=== PATIENT | female | born 1970 | race Caucasian/White ===

== ENCOUNTER → 2016-06-21 | Outpatient (CLI) | payer BC ==
[~2016-06-21] MED LIST: ACHD5005 PO; AMLO10TA2 PO; AMLO10TA82 PO; AMPH20CA5 PO; IBP800T PO; LISI1TAB10 PO; LISI2.5T PO; LSNP20T PO; NITR-65 PO; ONDAN4ODT PO; TRAM50TA2 PO
[2016-06-21 19:58] LABS: BASOPHILS % (AUTO) 0 % (0-10); EOSINOPHILS # (AUTO) 0.1 10^3/uL (0.0-0.3); EOSINOPHILS % (AUTO) 3 % (0-10); LYMPHOCYTES # (AUTO) 1.8 X 10^3 (1.0-4.0); LYMPHOCYTES % (AUTO) 38 % (12-44); MEAN CORPUSCULAR HEMOGLOBIN 30 PG (25-34); MEAN CORPUSCULAR HGB CONC 35 G/DL (32-36); MEAN CORPUSCULAR VOLUME 86 FL (80-99); MEAN PLATELET VOLUME 11.4 FL (7.4-10.4); MONOCYTES # (AUTO) 0.6 X 10^3 (0.0-1.0); MONOCYTES % (AUTO) 13 % (0-12); NEUTROPHILS # (AUTO) 2.1 X 10^3 (1.8-7.8); NEUTROPHILS % (AUTO) 46 % (42-75); PLATELET COUNT 188 10^3/uL (130-400); RED BLOOD COUNT 4.52 10^6/uL (4.35-5.85); RED CELL DISTRIBUTION WIDTH 12.6 % (10.0-14.5); WHITE BLOOD COUNT 4.6 10^3/uL (4.3-11.0)
[2016-06-21 20:23] LABS: ALANINE AMINOTRANSFERASE 40 U/L (0-55); ALBUMIN 4.1 G/DL (3.2-4.5); ANION GAP 11 MMOL/L (5-14); ASPARTATE AMINO TRANSFERASE 32 U/L (5-34); BILIRUBIN,TOTAL 0.3 MG/DL (0.1-1.0); BLOOD UREA NITROGEN 12 MG/DL (7-18); BUN/CREATININE RATIO 15; CARBON DIOXIDE 27 MMOL/L (21-32); CHLORIDE 102 MMOL/L (98-107); GFR ESTIMATED > 60; GLUCOSE 67 MG/DL (70-105); POTASSIUM 3.2 MMOL/L (3.6-5.0); SODIUM 140 MMOL/L (135-145); TOTAL PROTEIN 7.2 G/DL (6.4-8.2)
== END ==
LOC: LAB 19:40
PROVIDERS: ATTEND Nurse Practitioner Family
DX: M54.6 Pain in thoracic spine (principal); R10.84 Generalized abdominal pain
CPT/HCPCS: 36415; 80053; 85025

== ENCOUNTER 2021-10-09 13:23 | Observation (INO) | payer SELFPAY ==
[~2021-10-09] VITALS: Ht 160 cm; Wt 57.3 kg
[~2021-10-09 13:23] MED LIST changes: +AMLO-251 PO; -AMLO10TA2 PO; -LISI1TAB10 PO; +LISI1TAB48 PO; -LISI2.5T PO; +LISI2.5T13 PO; +TRM50T PO
--- NOTE | 2021-10-09 14:13 | ED Chest Pain ---
General Chief Complaint: Cardiac/General Problems Stated Complaint: CP,TANNER Source: patient Exam Limitations: no limitations History of Present Illness Date Seen by Provider: Oct 09, 2021 Time Seen by Provider: 13:48 Initial Comments Patient to the ER by EMS after being released from residential with chief complaint of high blood pressure, headache and chest pain substernal nonradiating. She says she was just laying down about 1030 at home when the chest pain started. It is worse with exertion. She was given 2 tablets of 81 mg aspirin by EMS and nitroglycerin paste which took her pain down from an 8 out of 10 to a 0 out of 10. Last use of IV methamphetamines was 2 weeks ago. She is not having shortness of air, back pain, vomiting but she has had nausea. No fevers chills cough leg swelling. No history of blood clots. No history of coronary disease but she does have significant hypertension for which she supposed to be on lisinopril, Norvasc and because she was incarcerated and ran out of her meds she has been out for at least 5 days. She doctors with [facility]. No significant early onset familial coronary disease. Last menstrual period is been a few months but the patient is perimenopausal states that she has not been regular for the past 6 months to a year. She is not on control. Smokes about half a pack per day. Allergies and Home Medications Allergies Coded Allergies: Penicillins (Verified Allergy, Unknown, 11/21/06) Patient Home Medication List Home Medication List Reviewed: Yes Amlodipine Besylate (Amlodipine Besylate) 10 Mg Tablet, 10 MG PO DAILY, (Reported) Entered as Reported by: ERIC POP on 03/23/16 1650 Dextroamphetamine/Amphetamine (Adderall Xr 20 mg Capsule) 20 Mg Cap.er.24h, 20 MG PO DAILY, (Reported) Entered as Reported by: LITA BORRERO on 03/23/16 1327 Lisinopril/Hydrochlorothiazide (Lisinopril-Hctz 20-25 mg Tab) 1 Each Tablet, 1 TAB PO DAILY, (Reported) Entered as Reported by: ERIC POP on 03/23/16 1650 Nitrofurantoin Monohyd/M-Cryst (Macrobid 100 mg Capsule) 100 Mg Capsule, 1 TAB PO BID Prescribed by: DAIANA GARCIA on 03/26/16 0939 Tramadol HCl (Tramadol HCl) 50 Mg Tablet, 100 MG PO TID, (Reported) Entered as Reported by: LITA BORRERO on 03/23/16 1327 Review of Systems Review of Systems Constitutional: No chills, No diaphoresis EENTM: No Blurred Vision, No Double Vision Respiratory: Denies Cough, Denies Shortness of Air; SOA With Exertion Cardiovascular: See HPI, Chest Pain; Denies Edema, Denies Irregular Heart Rate, Denies Lightheadedness Gastrointestinal: Denies Abdominal Pain, Denies Blood Streaked Stools, Denies Constipated, Denies Diarrhea, Denies Nausea Genitourinary: Denies Burning, Denies Discharge Musculoskeletal: No back pain, No joint pain Skin: No pruritus, No rash Psychiatric/Neurological: Denies Headache, Denies Numbness All Other Systems Reviewed Negative Unless Noted: Yes Past Qxihphl-Kwfwrv-Uzlfrh Hx Patient Social History Tobacco Use?: Yes Tobacco type used: Cigarettes Smoking Status: Current Everyday Smoker Substance use?: Yes Substance type: Methamphetamine Substance frequency: Once in a while Alcohol Use?: No Pt feels they are or have been: No Past Medical History Surgery/Hospitalization HX: HTN, APPY, Appendectomy, Section Hypertension Reproductive Disorders: No Back Injury, Chronic Back Pain Loss of Vision: Denies Hearing Impairment: Denies ADD/ADHD Physical Exam Vital Signs Vital Signs - First Documented 10/09/21 13:42 Temp 36.4 Pulse 80 Resp 20 B/P (MAP) 207/138 (161) Capillary Refill : Height, Weight, BMI Height: 5'3.00" Weight: 130lbs. 0.0oz. 58.213396us; 23.0 BMI Method:Stated General Appearance: No Apparent Distress, WD/WN HEENT: PERRL/EOMI, Pharynx Normal, Moist Mucous Membranes Neck: Full Range of Motion, Normal Inspection Respiratory: Chest Non Tender, Lungs Clear, Normal Breath Sounds, No Accessory Muscle Use, No Respiratory Distress Cardiovascular: Regular Rate, Rhythm, No Edema Gastrointestinal: Normal Bowel Sounds, Non Tender, Soft Extremity: Normal Capillary Refill, Normal Inspection, No Pedal Edema Neurologic/Psychiatric: Alert, Oriented x3, No Motor/Sensory Deficits Skin: Normal Color, Warm/Dry Progress/Results/Core Measures Results/Orders Lab Results Laboratory Tests Test 10/09/21 13:57 10/09/21 14:05 Range/Units SARS-CoV-2 RNA (RT-PCR) Not Detected Not Detecte White Blood Count 7.1 4.3-11.0 10^3/uL Red Blood Count 5.20 H 3.80-5.11 10^6/uL Hemoglobin 15.2 11.5-16.0 g/dL Hematocrit 46 35-52 % Mean Corpuscular Volume 88 80-99 fL Mean Corpuscular Hemoglobin 29 25-34 pg Mean Corpuscular Hemoglobin Concent 33 32-36 g/dL Red Cell Distribution Width 12.7 10.0-14.5 % Platelet Count 265 130-400 10^3/uL Mean Platelet Volume 11.2 9.0-12.2 fL Immature Granulocyte % (Auto) 0 % Neutrophils (%) (Auto) 73 42-75 % Lymphocytes (%) (Auto) 16 12-44 % Monocytes (%) (Auto) 9 0-12 % Eosinophils (%) (Auto) 1 0-10 % Basophils (%) (Auto) 1 0-10 % Neutrophils # (Auto) 5.2 1.8-7.8 10^3/uL Lymphocytes # (Auto) 1.2 1.0-4.0 10^3/uL Monocytes # (Auto) 0.6 0.0-1.0 10^3/uL Eosinophils # (Auto) 0.1 0.0-0.3 10^3/uL Basophils # (Auto) 0.0 0.0-0.1 10^3/uL Immature Granulocyte # (Auto) 0.0 0.0-0.1 10^3/uL Prothrombin Time 13.3 12.2-14.7 SEC INR Comment 1.0 0.8-1.4 Activated Partial Thromboplast Time 28 24-35 SEC Sodium Level 139 135-145 MMOL/L Potassium Level 2.9 L 3.6-5.0 MMOL/L Chloride Level 96 L 98-107 MMOL/L Carbon Dioxide Level 28 21-32 MMOL/L Anion Gap 15 H 5-14 MMOL/L Blood Urea Nitrogen 17 7-18 MG/DL Creatinine 0.91 0.60-1.30 MG/DL Estimat Glomerular Filtration Rate 77 BUN/Creatinine Ratio 19 Glucose Level 89 70-105 MG/DL Calcium Level 10.1 8.5-10.1 MG/DL Corrected Calcium 10.0 8.5-10.1 MG/DL Magnesium Level 1.5 L 1.6-2.4 MG/DL Total Bilirubin 0.5 0.1-1.0 MG/DL Aspartate Amino Transf (AST/SGOT) 42 H 5-34 U/L Alanine Aminotransferase (ALT/SGPT) 44 0-55 U/L Alkaline Phosphatase 39 L 40-136 U/L Myoglobin 86.7 10.0-92.0 NG/ML Troponin I < 0.028 <0.028 NG/ML B-Type Natriuretic Peptide 234.6 H <100.0 PG/ML Total Protein 8.8 H 6.4-8.2 GM/DL Albumin 4.1 3.2-4.5 GM/DL My Orders Orders - MAGY JOHNSON Continuous Ekg Monitoring (10/09/21 13:43) Ekg Tracing (10/09/21 13:43) Cbc With Automated Diff (10/09/21 14:04) Magnesium (10/09/21 14:04) Chest 1 View, Ap/Pa Only (10/09/21 14:04) Comprehensive Metabolic Panel (10/09/21 14:04) Myoglobin Serum (10/09/21 14:04) Protime With Inr (10/09/21 14:04) Partial Thromboplastin Time (10/09/21 14:04) O2 (10/09/21 14:04) Monitor-Rhythm Ecg Trace Only (10/09/21 14:04) Lipid Panel (10/10/21 06:00) Ed Iv/Invasive Line Start (10/09/21 14:04) Bnp Millicent (10/09/21 14:04) Troponin I Millicent (10/09/21 14:04) Aspirin Chewable Tablet (Baby Aspirin Ch (10/09/21 14:15) Acetaminophen Tablet (Tylenol Tablet) (10/09/21 14:15) Ondansetron Injection (Zofran Injectio (10/09/21 14:15) Urine Bedside (10/09/21 14:22) Covid 19 Inhouse Test (10/09/21 14:22) Magnesium (10/09/21 15:08) Potassium Chloride (Tablet) (K Dur Table (10/09/21 15:15) Lisinopril Tablet (Zestril Tablet) (10/09/21 17:45) Amlodipine Tablet (Norvasc Tablet) (10/09/21 17:45) Ed Admission (Communication) (10/09/21 17:35) Medications Given in ED Current Medications Medications Dose Ordered Sig/Josué Route Start Time Stop Time Status Last Admin Dose Admin Acetaminophen 1,000 mg ONCE ONCE PO 10/09/21 14:15 10/09/21 14:16 DC 10/09/21 14:14 1,000 MG Aspirin 162 mg ONCE ONCE PO 10/09/21 14:15 10/09/21 14:16 DC 10/09/21 14:14 162 MG Ondansetron HCl 8 mg ONCE ONCE IVP 10/09/21 14:15 10/09/21 14:16 DC 10/09/21 14:14 8 MG Potassium Chloride 20 meq ONCE ONCE PO 10/09/21 15:15 10/09/21 15:16 DC 10/09/21 15:49 20 MEQ Vital Signs/I&O 10/09/21 13:42 Temp 36.4 Pulse 80 Resp 20 B/P (MAP) 207/138 (161) Progress Progress Note : Time: 14:13 Progress Note 2 tablets of aspirin and continue the nitroglycerin paste. Her blood pressure is significantly elevated so we will see if this comes down with some time and if not then will make interventions. It has already come down from 200-187 systolic. There is some concerning ST depression in the inferior leads but it is not dissimilar to findings from 2013. Initial ECG Impression Date: Oct 09, 2021 Initial ECG Impression Time: 13:51 Initial ECG Rate: 78 Initial ECG Rhythm: Normal Sinus Initial ECG Intervals: Normal Initial ECG Impression: Normal Initial ECG Comparisson: Unchanged Comment Sinus rhythm without clinically relevant ST elevation. There is some ST depression seen in leads II, III and aVF that is similar to EKGs from 2013. Diagnostic Imaging Diagonstic Imaging: Xray Plain Films/CT/US/NM/MRI: chest Reviewed: Reviewed by Me Departure Communication (Admissions) Time/Spoke to Admitting Phy: 17:32 Discussed the case with Dr. Joseph and she agrees to observe the patient with cardiac consultation, trended troponins. She agrees to do queued orders. Time/Spoke to Consulting Phy: 17:20 Discussed the case with Dr. Patterson, cardiology he agrees with hypertensive urgency, keep the nitroglycerin on start the blood pressure medicines and obser vation overnight with trending troponins. Impression Primary Impression: Malignant hypertensive urgency Additional Impressions: Acute coronary syndrome without high troponin Chest pain Qualified Codes: R07.9 - Chest pain, unspecified Disposition: ADMITTED INPATIENT Condition: Stable Admissions Decision to Admit Reason: Admit from ER (General) Decision to Admit/Date: Oct 09, 2021 Time/Decision to Admit Time: 17:00 Departure-Patient Inst. Referrals: [facility] (PCP/Family) Primary Care Physician MAGY JOHNSON Oct 09, 2021 14:13
[2021-10-09] MEDS ORDERED: ACETAMINOPHEN 500 MG TAB (TYLENOL) PO ONE (14:15)
[2021-10-09] MEDS ORDERED: ONDANSETRON 4 MG/2 ML (SDV) Z0FRAN IVP ONE (14:15)
[2021-10-09] MEDS ORDERED: ASPIRIN 81 MG CHEW (CHILDREN'S ASA) PO ONE (14:15)
[2021-10-09 14:17] LABS: BASOPHILS % (AUTO) 1 % (0-10); EOSINOPHILS # (AUTO) 0.1 10^3/uL (0.0-0.3); EOSINOPHILS % (AUTO) 1 % (0-10); HEMATOCRIT 46 % (35-52); HEMOGLOBIN 15.2 g/dL (11.5-16.0); LYMPHOCYTES # (AUTO) 1.2 10^3/uL (1.0-4.0); LYMPHOCYTES % (AUTO) 16 % (12-44); MEAN CORPUSCULAR HEMOGLOBIN 29 pg (25-34); MEAN CORPUSCULAR HGB CONC 33 g/dL (32-36); MEAN CORPUSCULAR VOLUME 88 fL (80-99); MEAN PLATELET VOLUME 11.2 fL (9.0-12.2); MONOCYTES # (AUTO) 0.6 10^3/uL (0.0-1.0); MONOCYTES % (AUTO) 9 % (0-12); NEUTROPHILS # (AUTO) 5.2 10^3/uL (1.8-7.8); NEUTROPHILS % (AUTO) 73 % (42-75); PLATELET COUNT 265 10^3/uL (130-400); WHITE BLOOD COUNT 7.1 10^3/uL (4.3-11.0)
[2021-10-09 14:24] LABS: ALBUMIN 4.1 GM/DL (3.2-4.5); POTASSIUM 2.9 MMOL/L (3.6-5.0); PROTHROMBIN TIME PATIENT 13.3 SEC (12.2-14.7)
[2021-10-09 14:25] LABS: CALCIUM 10.1 MG/DL (8.5-10.1)
[2021-10-09 14:27] LABS: TOTAL PROTEIN 8.8 GM/DL (6.4-8.2)
[2021-10-09 14:28] LABS: BILIRUBIN,TOTAL 0.5 MG/DL (0.1-1.0)
[2021-10-09 14:30] LABS: CREATININE SERUM 0.91 MG/DL (0.60-1.30)
[2021-10-09 14:33] LABS: MAGNESIUM 1.5 MG/DL (1.6-2.4)
--- NOTE | 2021-10-09 15:00 | Diagnostic Imaging Report ---
INDICATION: Chest pain. COMPARISON: Comparison made with the prior study from January 27, 2013. FINDINGS: The diaphragms are flattened suggesting a component of air trapping. This may relate to underlying COPD. There are no findings of airspace consolidation or pneumonia. There is no effusion. There is no pneumothorax. There are nipple shadows present. There is no suspicious nodule or mass. Heart size is normal. Pulmonary vascularity appears appropriate. IMPRESSION: Mild flattening of the diaphragms which may relate to air trapping. There are no findings of an acute cardiopulmonary process evident. Dictated by: Dictated on workstation # [id number]
[2021-10-09] MEDS ORDERED: KCL 20 MEQ TAB (K-DUR) PO ONE (15:15)
[2021-10-09] MEDS ORDERED: amLODIPine 10 MG (NORVASC) TAB PO ONE (17:45)
[2021-10-09] MEDS ORDERED: lisINopril 20 MG (PRINIVIL) TABLET PO ONE (17:45)
[2021-10-09] MEDS ORDERED: cloNIDine 0.1 MG (CATAPRES) TAB PO PRN (18:30)
[2021-10-09] MEDS ORDERED: MILK OF MAGNESIA 400 MG/5 ML 30 ML UDC PO PRN (18:30)
[2021-10-09] MEDS ORDERED: ENOXAPARIN 40 MG/0.4 ML (LOVENOX) SYR SC SCH (18:30)
[2021-10-09] MEDS ORDERED: polyethylene glycoL POWDER 17 GM (MIRALAX) PACK PO PRN (18:30)
[2021-10-09] MEDS ORDERED: BISACODYL 10 MG SUPP (DULCOLAX) PR PRN (18:30)
[2021-10-09] MEDS ORDERED: hydrALAZINE (APESOLINE) 20 MG/ML VIAL IV PRN (18:30)
[2021-10-09] MEDS ORDERED: LACTULOSE SYRUP 10GM/15ML (ENULOSE) 30ML UDC PO PRN (18:30)
[2021-10-09] MEDS ORDERED: ONDANSETRON 4 MG/2 ML (SDV) Z0FRAN IV PRN (18:30)
[2021-10-09] MEDS ORDERED: CALCIUM CARBONATE 500 MG (TUMS) TAB.CHEW PO PRN (18:30)
[2021-10-09] MEDS ORDERED: diphenhydrAMINE 25 MG TAB (BENADRYL) PO PRN (18:30)
[2021-10-09] MEDS ORDERED: morphine INJ 4 MG/ML 1 ML (VIAL/SYRINGE) IV PRN (18:30)
[2021-10-09] MEDS ORDERED: ANTACID SUSP 30 ML UDC (MYLANTA) PO PRN (18:30)
[2021-10-09] MEDS ORDERED: ONDANSETRON 4 MG (ZOFRAN) ORAL DISSOLVE TAB PO PRN (18:30)
[2021-10-09] MEDS ORDERED: ACETAMINOPHEN 325 MG TABLET PO PRN (18:30)
[2021-10-09 19:00] VITALS: BP 178/110
[2021-10-09] MEDS ORDERED: SENNOSIDES 8.6 MG (SENOKOT) TAB ONE (19:32)
[2021-10-09] MEDS ORDERED: ALPRAZolam 0.25 MG (XANAX) TAB ONE (19:32)
[2021-10-09] MEDS ORDERED: DOCUSATE SODIUM 100 MG (COLACE) CAP PO ONE (19:32)
[2021-10-09] MEDS ORDERED: MELATONIN 3 MG TABLET ONE (19:32)
[2021-10-09] MEDS ORDERED: diphenhydrAMINE 50 MG/ML INJ (BENADRYL) ONE (19:33)
[2021-10-09] MEDS ORDERED: morphine INJ 4 MG/ML 1 ML (VIAL/SYRINGE) ONE (19:33)
[2021-10-09] MEDS ORDERED: ENOXAPARIN 40 MG/0.4 ML (LOVENOX) SYR ONE (19:33)
[2021-10-09] MEDS: diphenhydrAMINE 50 MG/ML INJ (BENADRYL) IVP PRN (19:39)
[2021-10-09] MEDS: DOCUSATE SODIUM 100 MG (COLACE) CAP PO SCH (19:40)
[2021-10-09] MEDS: MELATONIN 3 MG TABLET PO PRN (19:40)
[2021-10-09] MEDS: ALPRAZolam 0.25 MG (XANAX) TAB PO PRN (19:40)
[2021-10-09] MEDS: SENNOSIDES 8.6 MG (SENOKOT) TAB PO SCH (19:40)
[2021-10-09 20:08] VITALS: BP 207/138
[2021-10-09] MEDS ORDERED: RT-ALBUTEROL SULF 2.5 MG/3 ML PRE-MIX VIAL INH PRN (20:30)
[2021-10-09] MEDS: NITROGLYCERIN 2% OINT 1 GM UNIT DOSE PACKET TOP SCH (23:05)
[2021-10-09 23:56] VITALS: BP 100/54
[2021-10-10 04:00] VITALS: BP 100/64
[2021-10-10] MEDS: NITROGLYCERIN 2% OINT 1 GM UNIT DOSE PACKET TOP SCH (05:37)
[2021-10-10 05:38] LABS: HEMATOCRIT 39 % (35-52); MEAN CORPUSCULAR HEMOGLOBIN 30 pg (25-34); MEAN CORPUSCULAR HGB CONC 33 g/dL (32-36); MEAN CORPUSCULAR VOLUME 90 fL (80-99); MEAN PLATELET VOLUME 11.6 fL (9.0-12.2); PLATELET COUNT 266 10^3/uL (130-400); WHITE BLOOD COUNT 6.8 10^3/uL (4.3-11.0)
[2021-10-10 05:51] LABS: POTASSIUM 2.7 MMOL/L (3.6-5.0)
[2021-10-10 05:52] LABS: ALBUMIN 3.4 GM/DL (3.2-4.5)
[2021-10-10 05:53] LABS: CALCIUM 9.1 MG/DL (8.5-10.1)
[2021-10-10 05:56] LABS: BILIRUBIN,TOTAL 0.3 MG/DL (0.1-1.0)
[2021-10-10 05:58] LABS: CREATININE SERUM 1.34 MG/DL (0.60-1.30)
--- NOTE | 2021-10-10 07:21 | History & Physical-Hospitalist ---
History of Present Illness HPI/Chief Complaint Chief complaint: Chest pain with elevated troponin History of present illness: This is a 51-year-old female who presented to the ER with chest pain and found to have elevated troponin. Dr. Patterson has been consulted. Echocardiogram ordered. Patient remains sleepy she does open her eyes and she is in no distress but cannot provide any details right now. Source: patient Exam Limitations: no limitations Date Seen 10/10/21 Time Seen by a Provider: 11:00 Attending Physician [facility] PCP Admitting Physician: Chasidy Joseph DO Attending Physician: Chasidy Joseph DO Referring Physician Date of Admission Oct 09, 2021 at 17:36 Home Medications & Allergies Home Medications Reviewed patient Home Medication Reconciliation performed by pharmacy medication reconciliations photo optics technician and/or nursing. Patients Allergies have been reviewed. Allergies Allergies Coded Allergies Penicillins (Verified Allergy, Unknown, 11/21/06) Past Htnjayz-Atayno-Pcmxxb Hx Patient Social History Marrital Status: single Employed/Student: unemployed Tobacco Use?: Yes Tobacco type used: Cigarettes Smoking Status: Current Everyday Smoker Substance use?: Yes Substance type: Marijuana Substance frequency: Daily Alcohol Use?: No Pt feels they are or have been: No Immunizations Up To Date Tetanus Booster (TDap): Unknown Current Status status: No Advance Directives: No Communicates: Verbally Primary Language: Swiss Preferred Spoken Language: Swiss Is interpretation needed?: No Implanted or Applied Medical D: None Past Medical History Surgeries: Appendectomy, Section Hypertension Back Injury, Chronic Back Pain Loss of Vision: Denies Hearing Impairment: Denies ADD/ADHD Anxiety Drug Use Review of Systems Constitutional: see HPI EENTM: no symptoms reported Respiratory: no symptoms reported Cardiovascular: chest pain Gastrointestinal: no symptoms reported Genitourinary: no symptoms reported Musculoskeletal: no symptoms reported Skin: no symptoms reported Psychiatric/Neurological: No Symptoms Reported All Other Systems Reviewed Negative Unless Noted: Yes Physical Exam Physical Exam Vital Signs Vital Signs - First Documented 10/09/21 10/09/21 10/09/21 13:42 19:00 20:00 Temp 36.4 Pulse 80 Resp 20 B/P (MAP) 207/138 (161) Pulse Ox 96 O2 Delivery Room Air Capillary Refill : Height, Weight, BMI Height: 5'3.00" Weight: 130lbs. 0.0oz. 58.027847lr; 22.38 BMI Method:Stated General Appearance: No Apparent Distress, Chronically ill Eyes: Right Eye Normal Inspection, Right Eye PERRL HEENT: PERRL/EOMI, Normal ENT Inspection, Pharynx Normal, Moist Mucous Membranes Neck: Full Range of Motion, Normal Inspection, Non Tender Respiratory: Chest Non Tender, Lungs Clear, Normal Breath Sounds, No Accessory Muscle Use, No Respiratory Distress Cardiovascular: Regular Rate, Rhythm, No Edema, No Gallop, No JVD, No Murmur, Normal Peripheral Pulses Gastrointestinal: Normal Bowel Sounds, No Organomegaly, No Pulsatile Mass, Non Tender, Soft Back: Normal Inspection, No CVA Tenderness, No Vertebral Tenderness Extremity: Normal Capillary Refill, Normal Inspection, Normal Range of Motion, Non Tender, No Calf Tenderness, No Pedal Edema Neurologic/Psychiatric: Alert, Oriented x3, No Motor/Sensory Deficits, Normal Mood/Affect Skin: Normal Color, Warm/Dry Lymphatic: No Adenopathy Results Results/Procedures Labs Laboratory Tests 10/09/21 14:05 10/10/21 05:15 Patient resulted labs reviewed. Assessment/Plan Admission Diagnosis Assessment: CP Elevated troponin Chronic back pain Smoker Plan: Cardiology appreciated Monitor labs Admission Status: Observation Diagnosis/Problems Diagnosis/Problems (1) Acute coronary syndrome without high troponin Status: Acute (2) Malignant hypertensive urgency Status: Acute (3) Chest pain Status: Acute Qualifiers: Chest pain type: unspecified Qualified Codes: R07.9 - Chest pain, unspecified Clinical Quality Measures AMI/AHF: ASA po Prior to arrival: Yes (162) CHASIDY JOSEPH DO Oct 10, 2021 07:21
[2021-10-10 07:27] VITALS: BP 122/59
[2021-10-10] MEDS ORDERED: MAGNESIUM 1 GM/100 ML IVPB 100 ML IV ONE (07:30)
[2021-10-10] MEDS ORDERED: NS IV 500 ML 500 ML ONE (07:55)
[2021-10-10] MEDS ORDERED: MAGNESIUM 1 GM/100 ML IVPB 100 ML IV SCH (08:00)
[2021-10-10] MEDS ORDERED: POTASSIUM CL 10MEQ/50ML IVPB 50 ML IV SCH (08:00)
[2021-10-10] MEDS: POTASSIUM CL 10MEQ/50ML IVPB 50 ML IV SCH ×4 (08:07→13:08)
[2021-10-10] MEDS: lisINopril 20 MG (PRINIVIL) TABLET PO SCH (08:08)
[2021-10-10] MEDS: amLODIPine 10 MG (NORVASC) TAB PO SCH (08:08)
[2021-10-10] MEDS: SENNOSIDES 8.6 MG (SENOKOT) TAB PO SCH ×2 (08:08→21:32)
[2021-10-10] MEDS: DOCUSATE SODIUM 100 MG (COLACE) CAP PO SCH ×2 (08:08→21:32)
[2021-10-10] MEDS: ALPRAZolam 0.25 MG (XANAX) TAB PO PRN ×2 (08:56→21:32)
--- NOTE | 2021-10-10 10:49 | Consultation-Cardiology ---
HPI-Cardiology Cardiology Consultation Date of Consultation 10/10/21 Date of Admission Time Seen by Provider: 10:44 Indication: Chest pain HPI 51 years old lady with history of hypertension. Tobaccoism, marijuana and methamphetamine use. Started to have chest pain described it as dull in nature, in the retrosternal area, resolved at this time, feeling better No further episodes of chest pain, no palpitation. Patient was hypertensive on arrival to the hospital, reported that she has not taken her medication at least for the past 1 to 2 weeks Home Medications & Allergies Allergies: Coded Allergies: Penicillins (Verified Allergy, Unknown, 11/21/06) Home Medication List Reviewed: Yes OIN-Aitbzs-Qzhckr Hx Patient Social History Marital Status: Smoking Status: Current Everyday Smoker Recent Hopitalizations: No Have you traveled recently?: No Alcohol Use?: No Substance type: Marijuana Past Medical History Discussed below Family Medical History Family Medical Hx Noncontributory Review of Systems-General Review of Systems Constitutional: No chills, No diaphoresis; weakness EENTM: see HPI, no symptoms reported Respiratory: no symptoms reported, see HPI Cardiovascular: see HPI, chest pain; No edema, No Hx of Intervention, No palpitations, No syncope, No vascular heart diseas, No other Gastrointestinal: no symptoms reported, see HPI Genitourinary: no symptoms reported, see HPI Musculoskeletal: No back pain, No joint pain Skin: No pruritus, No rash Psychiatric/Neurological: Denies Headache, Denies Numbness All Other Systems Reviewed Negative Unless Noted: Yes Reviewed Test Results Reviewed Test Results Lab Laboratory Tests Test 10/09/21 13:57 10/09/21 14:05 10/10/21 05:15 Range/Units SARS-CoV-2 RNA (RT-PCR) Not Detected Not Detecte White Blood Count 7.1 6.8 4.3-11.0 10^3/uL Red Blood Count 5.20 H 4.34 3.80-5.11 10^6/uL Hemoglobin 15.2 13.0 11.5-16.0 g/dL Hematocrit 46 39 35-52 % Mean Corpuscular Volume 88 90 80-99 fL Mean Corpuscular Hemoglobin 29 30 25-34 pg Mean Corpuscular Hemoglobin Concent 33 33 32-36 g/dL Red Cell Distribution Width 12.7 13.0 10.0-14.5 % Platelet Count 265 266 130-400 10^3/uL Mean Platelet Volume 11.2 11.6 9.0-12.2 fL Immature Granulocyte % (Auto) 0 % Neutrophils (%) (Auto) 73 42-75 % Lymphocytes (%) (Auto) 16 12-44 % Monocytes (%) (Auto) 9 0-12 % Eosinophils (%) (Auto) 1 0-10 % Basophils (%) (Auto) 1 0-10 % Neutrophils # (Auto) 5.2 1.8-7.8 10^3/uL Lymphocytes # (Auto) 1.2 1.0-4.0 10^3/uL Monocytes # (Auto) 0.6 0.0-1.0 10^3/uL Eosinophils # (Auto) 0.1 0.0-0.3 10^3/uL Basophils # (Auto) 0.0 0.0-0.1 10^3/uL Immature Granulocyte # (Auto) 0.0 0.0-0.1 10^3/uL Prothrombin Time 13.3 12.2-14.7 SEC INR Comment 1.0 0.8-1.4 Activated Partial Thromboplast Time 28 24-35 SEC Sodium Level 139 138 135-145 MMOL/L Potassium Level 2.9 L 2.7 L 3.6-5.0 MMOL/L Chloride Level 96 L 97 L 98-107 MMOL/L Carbon Dioxide Level 28 27 21-32 MMOL/L Anion Gap 15 H 14 5-14 MMOL/L Blood Urea Nitrogen 17 26 H 7-18 MG/DL Creatinine 0.91 1.34 H 0.60-1.30 MG/DL Estimat Glomerular Filtration Rate 77 49 BUN/Creatinine Ratio 19 19 Glucose Level 89 109 H 70-105 MG/DL Calcium Level 10.1 9.1 8.5-10.1 MG/DL Corrected Calcium 10.0 9.6 8.5-10.1 MG/DL Magnesium Level 1.5 L 1.6-2.4 MG/DL Total Bilirubin 0.5 0.3 0.1-1.0 MG/DL Aspartate Amino Transf (AST/SGOT) 42 H 33 5-34 U/L Alanine Aminotransferase (ALT/SGPT) 44 32 0-55 U/L Alkaline Phosphatase 39 L 37 L 40-136 U/L Myoglobin 86.7 10.0-92.0 NG/ML Troponin I < 0.028 < 0.028 <0.028 NG/ML B-Type Natriuretic Peptide 234.6 H <100.0 PG/ML Total Protein 8.8 H 7.0 6.4-8.2 GM/DL Albumin 4.1 3.4 3.2-4.5 GM/DL Triglycerides Level 84 <150 MG/DL Cholesterol Level 148 < 200 MG/DL LDL Cholesterol Direct 101 1-129 MG/DL VLDL Cholesterol 17 5-40 MG/DL HDL Cholesterol 40 40-60 MG/DL Physical Exam Physical Exam Vital Signs Vital Signs - First Documented 10/09/21 10/09/21 10/09/21 13:42 19:00 20:00 Temp 36.4 Pulse 80 Resp 20 B/P (MAP) 207/138 (161) Pulse Ox 96 O2 Delivery Room Air Capillary Refill : Height, Weight, BMI Height: 5'3.00" Weight: 130lbs. 0.0oz. 58.263656fr; 22.38 BMI Method:Stated General Appearance: No Apparent Distress, WD/WN HEENT: PERRL/EOMI, Pharynx Normal, Moist Mucous Membranes Neck: Full Range of Motion, Normal Inspection Respiratory: Chest Non Tender, Lungs Clear, Normal Breath Sounds, No Accessory Muscle Use, No Respiratory Distress Cardiovascular: Regular Rate, Rhythm, No Edema Gastrointestinal: Normal Bowel Sounds, Non Tender, Soft Extremity: Normal Capillary Refill, Normal Inspection, No Pedal Edema Neurologic/Psychiatric: Alert, Oriented x3, No Motor/Sensory Deficits Skin: Normal Color, Warm/Dry A/P-Cardiology Admission Diagnosis Chest pain Hypertension Tobaccoism Assessment/Plan Chest pain nonspecific etiology, reporting improvement EKG and cardiac enzymes were negative. Planning to do stress test as an outpatient. Okay for discharge and follow-up as an outpatient Hypertension, poor control Better control at this time, recommend adherence to her medication and compliance. Hypokalemia, hypomagnesemia, being replaced. Monitor electrolytes Tobaccoism, educated on smoking cessation Illicit drug use with methamphetamine and marijuana use. Educated on avoiding illicit drugs. Clinical Quality Measures AMI/AHF: ASA po Prior to arrival: Yes (162) NELY MONTELONGO MD Oct 10, 2021 10:49
[2021-10-10 11:07] VITALS: BP 184/88
[2021-10-10 16:33] VITALS: BP 134/62
[2021-10-10] MEDS ORDERED: ENOXAPARIN 40 MG/0.4 ML (LOVENOX) SYR SC SCH (18:00)
[2021-10-10 20:00] VITALS: BP 153/67
[2021-10-10] MEDS: MELATONIN 3 MG TABLET PO PRN (21:32)
[2021-10-10 23:38] VITALS: BP 128/62
[2021-10-11] MEDS: diphenhydrAMINE 50 MG/ML INJ (BENADRYL) IVP PRN (01:32)
[2021-10-11 03:01] VITALS: BP 134/66
--- NOTE | 2021-10-11 06:07 | Progress Note - Hospitalist ---
Subjective HPI/CC On Admission Date Seen by Provider: Oct 11, 2021 Time Seen by Provider: 09:30 Chief complaint: Chest pain with elevated troponin History of present illness: This is a 51-year-old female who presented to the ER with chest pain and found to have elevated troponin. Dr. Patterson has been consulted. Echocardiogram ordered. Patient remains sleepy she does open her eyes and she is in no distress but cannot provide any details right now. Objective Exam Vital Signs Vital Signs Date Time Temp Pulse Resp B/P (MAP) Pulse Ox O2 Delivery O2 Flow Rate FiO2 10/11/21 08:10 36.2 74 18 180/100 (126) 100 Room Air 10/11/21 07:13 0.00 Capillary Refill : Results/Procedures Lab Laboratory Tests 10/11/21 06:37 Patient resulted labs reviewed. Diagnosis/Problems Diagnosis/Problems (1) Acute coronary syndrome without high troponin Status: Acute (2) Malignant hypertensive urgency Status: Acute (3) Chest pain Status: Acute Qualifiers: Chest pain type: unspecified Qualified Codes: R07.9 - Chest pain, unspecified Clinical Quality Measures AMI/AHF: ASA po Prior to arrival: Yes (162) JIM ISLAS DO Oct 11, 2021 06:07
[2021-10-11 07:22] LABS: HEMATOCRIT 38 % (35-52); HEMOGLOBIN 12.5 g/dL (11.5-16.0); MEAN CORPUSCULAR HEMOGLOBIN 30 pg (25-34); MEAN CORPUSCULAR HGB CONC 33 g/dL (32-36); MEAN CORPUSCULAR VOLUME 91 fL (80-99); PLATELET COUNT 188 10^3/uL (130-400); WHITE BLOOD COUNT 5.1 10^3/uL (4.3-11.0)
[2021-10-11 07:44] LABS: ALBUMIN 3.2 GM/DL (3.2-4.5); BILIRUBIN,TOTAL 0.2 MG/DL (0.1-1.0); POTASSIUM 3.3 MMOL/L (3.6-5.0); TOTAL PROTEIN 6.7 GM/DL (6.4-8.2)
[2021-10-11 08:10] VITALS: BP 180/100
[2021-10-11] MEDS: lisINopril 20 MG (PRINIVIL) TABLET PO SCH (08:25)
[2021-10-11] MEDS: DOCUSATE SODIUM 100 MG (COLACE) CAP PO SCH (08:25)
[2021-10-11] MEDS: amLODIPine 10 MG (NORVASC) TAB PO SCH (08:26)
[2021-10-11] MEDS: SENNOSIDES 8.6 MG (SENOKOT) TAB PO SCH (08:26)
--- NOTE | 2021-10-11 09:14 | Cardiology Progress Note ---
Subjective Date Seen by Provider: Oct 11, 2021 Time Seen by Provider: 09:13 Subjective/Events-last exam Patient was seen at bedside, laying down comfortably, feeling better. No new complaint. Review of Systems General: No Chills, No Night Sweats, No Fatigue, No Malaise, No Appetite, No Ot her HEENT: No Head Aches, No Visual Changes, No Eye Pain, No Ear Pain, No Dysp hasia, No Sinus Congestion, No Post Nasal Drip, No Sore Throat, No Other Pulmonary: No Dyspnea, No Cough, No Pleuritic Chest Pain, No Other Cardiovascular: No: Chest Pain, Palpitations, Orthopnea, Paroxysmal Noc. Dyspnea, Edema, Lt Headedness, Other Objective-Cardiology Exam Last Set of Vital Signs Vital Signs 10/11/21 10/11/21 07:13 08:10 Temp 36.2 Pulse 74 Resp 18 B/P (MAP) 180/100 (126) Pulse Ox 100 O2 Delivery Room Air O2 Flow Rate 0.00 I&O Intake and Output 10/11/21 00:00 Intake Total 2850 ml Balance 2850 ml Intake Oral 2500 ml IV Total 350 ml # Voids 6 General: Alert, Oriented X3, Cooperative HEENT: Atraumatic, PERRLA Neck: Supple, No JVD, No Thyromegaly Lungs: Clear to Auscultation, Normal Air Movement Heart: Regular Rate, Normal S1, Normal S2, No Murmurs Abdomen: Normal Bowel Sounds, Soft, No Tenderness, No Hepatosplenomegaly, No Masses Extremities: No Clubbing, No Cyanosis, No Edema, Normal Pulses, No Tenderness/Swelling Skin: No Rashes, No Breakdown, No Significant Lesion Neuro: Normal Gait, Normal Speech, Strength at 5/5 X4 Ext, Normal Tone, Sensation Intact Psych/Mental Status: Mental Status NL, Mood NL Results Lab Laboratory Tests 10/11/21 06:37 A/P-Cardiology Admission Diagnosis Chest pain Hypertension Tobaccoism Assessment/Plan Chest pain nonspecific etiology, reporting improvement EKG and cardiac enzymes were negative. Planning to do stress test as an outpatient. Okay for discharge and follow-up as an outpatient Hypertension, poor control Elevated blood pressure again this morning. Currently on amlodipine 10 mg daily and lisinopril 20 mg daily, adding Toprol-XL 50 mg daily and evaluate tolerance and response Hypokalemia, hypomagnesemia, I will give additional KCl 20 mill equivalent today and evaluate magnesium level Tobaccoism, educated on smoking cessation Illicit drug use with methamphetamine and marijuana use. Educated on avoiding illicit drugs. NELY MONTELONGO MD Oct 11, 2021 09:14
[2021-10-11] MEDS ORDERED: meTOproloL SUCCINATE 50 MG (TOPROL XL) TAB PO SCH (09:15)
[2021-10-11] MEDS ORDERED: LOSARTAN 100 MG (COZAAR) TABLET PO SCH (09:15)
[2021-10-11] MEDS ORDERED: KCL 20 MEQ TAB (K-DUR) PO NR (09:15)
[2021-10-11] MEDS ORDERED: LISI1TAB48 PO (09:18)
[2021-10-11] MEDS ORDERED: AMLO-251 PO (09:18)
[2021-10-11] MEDS ORDERED: METO50TA7 PO (09:18)
--- NOTE | 2021-10-11 09:19 | Discharge Summary ---
Discharge Summary Hospital Course Was the Problem List Reviewed?: Yes Problems/Dx: (1) Acute coronary syndrome without high troponin Status: Acute (2) Malignant hypertensive urgency Status: Acute (3) Chest pain Status: Acute Qualifiers: Qualified Codes: R07.9 - Chest pain, unspecified Hospital Course Date of Admission: Oct 09, 2021 at 17:36 Admission Diagnosis : Family Physician/Provider: [place] Date of Discharge: 10/11/21 Discharge Diagnosis: chest pain, malignant HTN, meth use Hospital Course: Hospital course: Patient had an uneventful hospital course after she was admitted for hypertensive urgency with chest pain and elevated troponin patient does have a history of meth use. Antihypertensive medication initiated patient was discharged in improved condition with close follow-up for outpatient stress test. Labs and Pending Lab Test: Laboratory Tests 10/11/21 06:37: White Blood Count 5.1, Red Blood Count 4.21, Hemoglobin 12.5, Hematocrit 38, Mean Corpuscular Volume 91, Mean Corpuscular Hemoglobin 30, Mean Corpuscular Hemoglobin Concent 33, Red Cell Distribution Width 13.0, Platelet Count 188, Mean Platelet Volume 12.0, Sodium Level 140, Potassium Level 3.3L, Chloride Level 102, Carbon Dioxide Level 26, Anion Gap 12, Blood Urea Nitrogen 24H, Creatinine 1.00, Estimat Glomerular Filtration Rate 69, BUN/Creatinine Ratio 24, Glucose Level 93, Calcium Level 9.0, Corrected Calcium 9.6, Magnesium Level [Pending], Total Bilirubin 0.2, Aspartate Amino Transf (AST/SGOT) 34, Alanine Aminotransferase (ALT/SGPT) 36, Alkaline Phosphatase 31L, Total Protein 6.7, Albumin 3.2 Home Meds Active Metoprolol Succinate 50 Mg Tab.er.24h 50 Mg PO DAILY Amlodipine Besylate 10 Mg Tablet 10 Mg PO DAILY Lisinopril-Hctz 20-25 mg Tab (Lisinopril/Hydrochlorothiazide) 1 Each Tablet 1 Tab PO DAILY Reported Tramadol HCl 50 Mg Tablet 100 Mg PO TID Adderall Xr 20 mg Capsule (Dextroamphetamine/Amphetamine) 20 Mg Cap.er.24h 20 Mg PO DAILY Assessment/Pt Instructions PCP 1 week Discharge Planning: <30 minutes discharge planning Discharge Instructions Discharge Diet: No Restrictions Discharge Physical Examination Vital Signs Vital Signs Date Time Temp Pulse Resp B/P (MAP) Pulse Ox O2 Delivery O2 Flow Rate FiO2 10/11/21 08:10 36.2 74 18 180/100 (126) 100 Room Air 10/11/21 07:13 0.00 General Appearance: No Apparent Distress, WD/WN Allergies: Coded Allergies: Penicillins (Verified Allergy, Unknown, 11/21/06) Discharge Summary Date of Admission Oct 09, 2021 at 17:36 Date of Discharge Discharge Date: Oct 11, 2021 Admission Diagnosis Assessment: CP Elevated troponin Chronic back pain Smoker Plan: Cardiology appreciated Monitor labs Discharge Diagnosis (1) Acute coronary syndrome without high troponin Status: Acute (2) Malignant hypertensive urgency Status: Acute (3) Chest pain Status: Acute Qualifiers: Qualified Codes: R07.9 - Chest pain, unspecified Clinical Quality Measures AMI/AHF: ASA po Prior to arrival: Yes (162) JIM ISLAS DO Oct 11, 2021 09:19
[2021-10-11 11:30] VITALS: BP 170/64
== END 2021-10-11 12:05 | disposition home or self-care (01) ==
LOC: EDUNIT# 13:23 → ER 13:41 → 4TH 17:36 → UNDOADMOB 17:36 → 4TH 18:39 → UNDODISOB 10-11 12:05
PROVIDERS: ADMIT Internal Medicine; ATTEND Internal Medicine
DX: I24.9 Acute ischemic heart disease, unspecified (principal); I16.0 Hypertensive urgency; F17.210 Nicotine dependence, cigarettes, uncomplicated
CPT/HCPCS: 71045; 80053 ×3; 80061; 83735 ×2; 83874; 83880; 84484 ×2; 84703; 85025; 85027 ×2; 85610; 85730; 87636; 93005; 93041; 93306; 94760; 96366; 96372 ×2; 96375; 96376 ×2; 99284; G0378; 36415; 96374